=== PATIENT | male | born 1980 | race African-American/Black ===

== ENCOUNTER 2021-09-06 23:04 | Emergency (ER) | payer SELFPAY ==
[2021-09-06] MEDS ORDERED: Lorazepam 2 MG/ML VIAL ONE (23:17)
[2021-09-06 23:36] LABS: Hemoglobin 15.5 g/dL (13.5-17.5); Mean Corpuscular HGB CONC 32.7 g/dL (32.0-36.0); Mean Corpuscular Hemoglobin 29.1 pg (27.0-33.0); Mean Corpuscular Volume 89.1 fl (81.2-95.1); Mean Platelet Volume 10.8 fl (7.4-10.4); Platelet Count 305 10x3/uL (150-450); RBC Distribution Width 13.5 % (11.5-14.5); Red Blood Cell (RBC) Count 5.32 10x6/uL (4.32-5.72); White Blood Cell (WBC) Count 11.8 10x3/uL (3.5-10.5)
[2021-09-06 23:38] LABS: MDiff Complete? YES
[2021-09-06 23:44] LABS: ALT (SGPT) 58 U/L (8-55); AST (SGOT) 43 U/L (5-34); Albumin 4.5 g/dL (3.5-5.0); Alkaline Phosphatase 127 U/L (40-110); Anion Gap 22 mmol/L (10-20); BUN (Urea Nitrogen) 15 mg/dL (8.9-20.6); Bilirubin, Total 0.4 mg/dL (0.2-1.2); Calc. Creatinine Clearance 0 mL/min (70-130); Calcium 9.1 mg/dL (7.8-10.44); Carbon Dioxide 19 mmol/L (22-29); Chloride 107 mmol/L (98-107); Estimated GFR 60; Globulin 3.9 g/dL (2.4-3.5); Glucose 219 mg/dL (70-105); Potassium 3.7 mmol/L (3.5-5.1); Protein, Total 8.4 g/dL (6.0-8.3); Sodium 144 mmol/L (136-145)
[2021-09-06 23:45] LABS: Acetaminophen Less than 10.0 mcg/mL (10.0-30.0); Alcohol Less than 10 mg/dL (Less than 10); Salicylate Less than 8.0 mg/dL (15.0-30.0)
[2021-09-07 00:08] LABS: Amphetamine Not Detected (NotDetected); Barbiturates Screen Not Detected (NotDetected); Benzodiazepine Screen Not Detected (NotDetected); Cocaine Metabolite Screen Not Detected (NotDetected); Methadone Not Detected (NotDetected); Methamphetamine Not Detected (NotDetected); Opiate Screen Not Detected (NotDetected); Oxycodone Screen Not Detected (NotDetected); Phencyclidine (PCP) Detected (NotDetected); THC/Cannabinoid Screen Not Detected (NotDetected); Tricyclic Screen Not Detected (NotDetected)
[2021-09-07 00:28] LABS: Lymphocytes 49 % (21-51); Monocytes 6 % (0-10); Neutrophil 45 % (42-75)
[2021-09-07] MEDS ORDERED: Acetaminophen 500 MG TAB ONE (00:39)
== END 2021-09-07 00:38 ==
LOC: CSHERS 23:04
DX: F16.129 Hallucinogen abuse with intoxication, unspecified (principal); F17.200 Nicotine dependence, unspecified, uncomplicated
CPT/HCPCS: 36415; 80053; 80306; 80307; 85025; 93005; 96374; J2060

== ENCOUNTER 2021-10-14 13:25 | Observation (INO) | payer SELFPAY ==
[~2021-10-14 13:25] MED LIST: Iopamidol 300 61% 100 ML VIAL FS ONE
[2021-10-14 14:30] LABS: #Eosinphils 0.2 10x3/uL (0.0-0.5); #Monocytes 0.5 10x3/uL (0.0-1.1); #Neutrophils 3.3 10x3/uL (1.5-8.4); %Basophils 0.6 % (0.0-2.0); %Eosinophils 2.3 % (0.0-6.0); %Lymphocytes 39.6 % (18.0-47.0); %Monocytes 7.8 % (0.0-10.0); %Neutrophils 49.5 % (40.0-75.0); Hemoglobin 14.4 g/dL (13.5-17.5); Mean Corpuscular HGB CONC 33.1 g/dL (32.0-36.0); Mean Corpuscular Hemoglobin 28.7 pg (27.0-33.0); Mean Corpuscular Volume 86.8 fl (81.2-95.1); Mean Platelet Volume 10.9 fl (7.4-10.4); Platelet Count 259 10x3/uL (150-450); RBC Distribution Width 13.2 % (11.5-14.5); Red Blood Cell (RBC) Count 5.01 10x6/uL (4.32-5.72); White Blood Cell (WBC) Count 6.6 10x3/uL (3.5-10.5)
[2021-10-14] MEDS ORDERED: methylPREDNISolone Sod Succ/PF 125 MG/2 ML VIAL ONE (14:33)
[2021-10-14 14:43] LABS: ALT (SGPT) 49 U/L (8-55); AST (SGOT) 31 U/L (5-34); Albumin 4.2 g/dL (3.5-5.0); Alkaline Phosphatase 111 U/L (40-110); Anion Gap 12 mmol/L (10-20); BUN (Urea Nitrogen) 10 mg/dL (8.9-20.6); Bilirubin, Total 0.4 mg/dL (0.2-1.2); Calc. Creatinine Clearance 0 mL/min (70-130); Carbon Dioxide 23 mmol/L (22-29); Chloride 107 mmol/L (98-107); Estimated GFR 111; Globulin 3.4 g/dL (2.4-3.5); Glucose 256 mg/dL (70-105); Potassium 4.1 mmol/L (3.5-5.1); Protein, Total 7.6 g/dL (6.0-8.3); Sodium 138 mmol/L (136-145)
[2021-10-14 14:55] LABS: SARS-CoV-2 NAA Rapid Test Not Detected (NotDetected)
[2021-10-14 17:08] LABS: Free T4 (Free Thyroxine) 0.95 ng/dL (0.70-1.48); Thyroid Stimulating Hormone 0.9692 uIU/mL (0.35-4.94)
[2021-10-14] MEDS ORDERED: Guaifenesin DM 100-10/5 ML UDCUP PO PRN (19:10)
[2021-10-14] MEDS ORDERED: HYDROcodone/Acetaminophen 5/325 mg Tablet PO PRN (19:10)
[2021-10-14] MEDS ORDERED: Calcium Carbonate 500 MG ChewTAB PO PRN (19:10)
[2021-10-14] MEDS ORDERED: Acetaminophen 325 MG TAB PO PRN (19:10)
[2021-10-14] MEDS ORDERED: Ondansetron PF 4 MG/2 ML Vial IVP PRN (19:10)
[2021-10-14] MEDS ORDERED: Senokot S 8.6-50 MG TAB PO PRN (19:10)
[2021-10-14] MEDS ORDERED: Dextrose 5% in Water 1,000 ML IV PRN (19:14)
[2021-10-14] MEDS ORDERED: Dextrose 50% Abboject 50 ML SYRINGE SLOW IVP PRN (19:14)
[2021-10-14] MEDS ORDERED: Albuterol Sulfate 2.5 mg/3 ml Neb NEB PRN (19:16)
[2021-10-14 19:21] LABS: Bilirubin Neg (Negative); Blood, Urine 50 (Negative); Clarity Clear (Clear); Glucose, Urine (Dipstick) Normal (Negative); Ketone, Urine Negative (Negative); Leukocyte Negative (Negative); Nitrite Negative (Negative); Protein, Urine (Dipstick) Negative (Neg-Trace); Specific Gravity, Urine 1.015 (1.002-1.036); Urobilinogen Normal mg/dL (Less than 2)
[2021-10-14 19:49] LABS: RBC/HPF 0-3 HPF (0-3); Squamous Epithelial None Seen HPF (0-3)
[2021-10-14 19:51] LABS: Transitional Epithelial None Seen HPF (None Seen); WBC/HPF 0-3 HPF (0-3)
[2021-10-14 19:52] LABS: Bacteria/HPF None Seen HPF (None Seen)
[2021-10-14 20:49] LABS: Lactic Acid 1.9 mmol/L (0.5-2.2)
[2021-10-14] MEDS: Dexamethasone 4 mg/ml Vial SLOW IVP SCH (21:32)
[2021-10-14] MEDS: Famotidine/PF 20 mg/2ml Vial SLOW IVP SCH (21:32)
[2021-10-14 22:11] VITALS: BMI 39.1
[2021-10-15] MEDS: HumaLOG 300 UNITS/3 ML VIAL SC PRN ×5 (00:20→22:39)
[2021-10-15 04:36] LABS: #Monocytes 0.2 10x3/uL (0.0-1.1); #Neutrophils 8.1 10x3/uL (1.5-8.4); %Basophils 0.1 % (0.0-2.0); %Lymphocytes 16.6 % (18.0-47.0); %Monocytes 2.2 % (0.0-10.0); %Neutrophils 80.9 % (40.0-75.0); Mean Corpuscular HGB CONC 34.1 g/dL (32.0-36.0); Mean Corpuscular Hemoglobin 28.9 pg (27.0-33.0); Mean Corpuscular Volume 84.9 fl (81.2-95.1); Mean Platelet Volume 11.1 fl (7.4-10.4); Platelet Count 277 10x3/uL (150-450); RBC Distribution Width 13.2 % (11.5-14.5); Red Blood Cell (RBC) Count 4.84 10x6/uL (4.32-5.72); White Blood Cell (WBC) Count 10.1 10x3/uL (3.5-10.5)
[2021-10-15 04:55] LABS: Anion Gap 13 mmol/L (10-20); BUN (Urea Nitrogen) 12 mg/dL (8.9-20.6); Calc. Creatinine Clearance 237 mL/min (70-130); Calcium 9.2 mg/dL (7.8-10.44); Carbon Dioxide 21 mmol/L (22-29); Chloride 104 mmol/L (98-107); Estimated GFR 115; Glucose 344 mg/dL (70-105); Potassium 4.2 mmol/L (3.5-5.1); Sodium 134 mmol/L (136-145)
[2021-10-15 05:28] LABS: Free T4 (Free Thyroxine) 0.94 ng/dL (0.70-1.48); Thyroid Stimulating Hormone 0.3162 uIU/mL (0.35-4.94)
[2021-10-15] MEDS: Dexamethasone 4 mg/ml Vial SLOW IVP SCH ×3 (05:47→22:30)
[2021-10-15] MEDS ORDERED: Lantus 1000 UNITS/10 ML VIAL SC SCH ×2 (08:00→21:00)
[2021-10-15] MEDS: Famotidine/PF 20 mg/2ml Vial SLOW IVP SCH ×2 (08:44→22:30)
[2021-10-15 12:42] LABS: Hemoglobin A1c 4.5 % (4.0-6.0)
[2021-10-16] MEDS: HumaLOG 300 UNITS/3 ML VIAL SC PRN ×3 (02:18→12:40)
[2021-10-16] MEDS: Dexamethasone 4 mg/ml Vial SLOW IVP SCH (06:28)
[2021-10-16] MEDS ORDERED: Amlodipine 5 MG TAB PO SCH ×2 (07:45→09:00)
[2021-10-16] MEDS: Famotidine/PF 20 mg/2ml Vial SLOW IVP SCH ×2 (10:46→13:04)
[2021-10-16 13:23] VITALS: BP 119/55; TEMP 97.9
== END 2021-10-16 12:52 | disposition home or self-care (01) ==
LOC: CSHERS 13:25 → CSHTELE 21:11
PROVIDERS: ADMIT Student in an Organized Health Care Education/Training Program; ATTEND Family Medicine
DX: E04.1 Nontoxic single thyroid nodule (principal); R06.1 Stridor; J03.90 Acute tonsillitis, unspecified; R06.03 Acute respiratory distress; R73.9 Hyperglycemia, unspecified; I10 Essential (primary) hypertension; E66.01 Morbid (severe) obesity due to excess calories; Z68.39 Body mass index [BMI] 39.0-39.9, adult; Z79.899 Other long term (current) drug therapy; Z87.891 Personal history of nicotine dependence
CPT/HCPCS: 36415; 36416; 70492; 71045; 76536; 80048; 80053; 81003; 81015; 83036; 83605; 83880; 84439; 84443; 84484; 85025; 87040; 87081; 87430; 93005; 94640; 94760; 96361; 96374; 96375; 96376; G0378; J1100; J1815; J2930; J7620; Q9967; S0028; U0002

== ENCOUNTER 2021-11-10 17:21 | Emergency (ER) | payer SELFPAY | END 2021-11-10 18:05 | disposition home or self-care (01) | LOC: CSHERS 17:21 | DX: F43.0 Acute stress reaction (principal); F41.9 Anxiety disorder, unspecified; F17.200 Nicotine dependence, unspecified, uncomplicated | CPT/HCPCS: 99284 ==